=== PATIENT | female | born 1995 | race Caucasian/White ===

== ENCOUNTER 2016-08-31 21:37 | Emergency (ER) | payer OTHER ==
[~2016-08-31] VITALS: Ht 157.5 cm; Wt 68.0 kg
[2016-08-31] MEDS ORDERED: MOBIC15 MG PO (22:37)
[2016-08-31] MEDS ORDERED: PREDNISONE 20 M20 MG PO (22:37)
[2016-08-31 23:40] VITALS: BP 112/78
== END 2016-08-31 23:41 | disposition home or self-care (01) ==
LOC: ER 21:37
DX: J20.8 Acute bronchitis due to other specified organisms (principal); J02.8 Acute pharyngitis due to other specified organisms